=== PATIENT | female | born 1995 | race Hispanic/Latino ===

== ENCOUNTER 2023-03-18 23:21 | Observation (INO) | payer MEDICAID ==
[~2023-03-18] VITALS: Ht 165.1 cm; Wt 87.5 kg
[2023-03-18 23:23] VITALS: BP 136/77; PULSE 81; RESP 18
[2023-03-19 00:35] LABS: APPEARANCE,URINE CLEAR (CLEAR); BILIRUBIN,URINE NEGATIVE (NEGATIVE); COLOR,URINE LIGHT-YELLOW (YELLOW); GLUCOSE, URINE (UA) NEGATIVE (NEGATIVE); KETONES,URINE NEGATIVE (NEGATIVE); LEUKOCYTE ESTERASE ,URINE NEGATIVE Leu/uL (NEGATIVE); NITRATE,URINE NEGATIVE (NEGATIVE); OCCULT BLOOD,URINE NEGATIVE (NEGATIVE); PH,URINE 6.5 (5.0-8.0); PROTEIN,URINE NEGATIVE (NEGATIVE); UROBILINOGEN,URINE 0.2 mg/dL (0.2-1.0)
[2023-03-19 00:36] LABS: ADD UA MICROSCOPIC NO
[2023-03-19] MEDS ORDERED: MEPERIDINE-PF 50 MG/ML SYG IVP PRN (01:30)
[2023-03-19] MEDS ORDERED: NALOXONE HCL 0.4 MG/1 ML ML IV PRN (01:30)
[2023-03-19] MEDS ORDERED: LACTATED RINGERS 1000ML 1,000 ML IV PRN (01:30)
[2023-03-19] MEDS ORDERED: LACTATED RINGERS 500 ML 500 ML IV PRN (01:30)
[2023-03-19] MEDS ORDERED: EPHEDRINE SULFATE 50 MG/ML AMPULE IVP PRN (01:30)
[2023-03-19] MEDS ORDERED: PROMETHAZINE HCL 25 MG/ML 1ML AMPULE IM PRN (01:30)
[2023-03-19] MEDS ORDERED: ROPIVACAINE 0.2% 100ML VIAL 100 ML EP SCH (01:30)
[2023-03-19 02:28] LABS: HEMATOCRIT 35.5 % (36-48); MEAN CORPUSCULAR HEMOGLOBIN 31.1 pg (27.0-33.0); MEAN CORPUSCULAR HGB CONC 34.6 g/dL (32.0-36.0); MEAN CORPUSCULAR VOLUME 89.6 fL (79-99); RED BLOOD CELL COUNT(AUTO) 3.96 MIL/uL (4.00-5.50); RED CELL DISTRIBUTION WIDTH 13.1 % (11.0-15.5); WHITE BLOOD COUNT (AUTO) 15.2 K/uL (4.8-10.8)
[2023-03-19 02:59] LABS: HIV 1&2 ANTIBODY Non-Reactive (Negative); HIV-1 p24 Antigen Non-Reactive (Negative)
[2023-03-19 11:07] LABS: RAPID PLASMA REAGIN NONREACTIVE (NONREACTIVE)
== END 2023-03-19 09:30 | disposition home or self-care (01) ==
LOC: EDH 23:21 → OBSVTOIN 23:22 → INTOOBSV 23:22 → LDH 23:22
PROVIDERS: ADMIT Obstetrics & Gynecology; ATTEND Obstetrics & Gynecology
DX: O26.853 Spotting complicating pregnancy, third trimester (principal); Z3A.40 40 weeks gestation of pregnancy; Z79.899 Other long term (current) drug therapy
CPT/HCPCS: 81003; 59025; 86592; 85027; 86850; 86900; 86901; 87340; 86701; 87390; 36415; G0378